=== PATIENT | male | born 1985 | race Caucasian/White ===

== ENCOUNTER 2024-02-27 07:59 | Emergency (ER) | payer MEDICAID ==
[~2024-02-27] VITALS: Ht 182.9 cm; Wt 113.4 kg
[2024-02-27 08:04] VITALS: BP 118/64; PULSE 74; RESP 20; TEMP 97.8; O2SAT 98
[2024-02-27] MEDS: LIDOCAINE MPF 1% 10 MG/ML VIAL INJ ONE (09:30)
[2024-02-27 09:53] LABS: AMPHETAMINE, URINE POSITIVE ng/ml (NEG <=1000); BARBITURATE, URINE NEGATIVE ng/ml (NEG <=200); BENZODIAZEPINE, URINE NEGATIVE ng/mL (NEG <=200); CANNABINOID, URINE NEGATIVE ng/mL (NEG <=50); COCAINE, URINE POSITIVE ng/mL (NEG <=300); OPIATE, URINE NEGATIVE ng/mL (NEG <=2000); PHENCYCLIDINE SCREEN,URINE NEGATIVE ng/mL (NEG <=25)
[2024-02-27 10:33] LABS: BASOPHILS % (AUTO) 0.2 % (0.0-2.0); EOSINOPHILS % (AUTO) 0.4 % (0.0-4.0); HEMATOCRIT 40.6 % (36-52); HEMOGLOBIN 14.4 g/dL (12.0-18.0); LYMPHOCYTES # (AUTO) 1.6 K/uL (2.0-11.5); LYMPHOCYTES % (AUTO) 18.4 % (20.5-51.1); MEAN CORPUSCULAR HEMOGLOBIN 32 pg (27-31); MEAN CORPUSCULAR HGB CONC 35 g/dL (33-37); MONOCYTES # (AUTO) 0.7 K/uL (0.8-1.0); NEUTROPHILS # (AUTO) 6.5 K/uL (1.8-7.7); PLATELET COUNT (AUTO) 266 K/uL (140-450); RED BLOOD CELL COUNT(AUTO) 4.51 MIL/uL (4.20-6.10); RED CELL DISTRIBUTION WIDTH 13.4 % (11.6-13.7); WHITE BLOOD COUNT (AUTO) 8.9 K/uL (4.8-10.8)
[2024-02-27 10:43] LABS: ANION GAP 8.9 (8-16); CALCIUM 9.1 mg/dL (8.5-10.1); CARBON DIOXIDE 31.8 mmol/L (21-32); CREATININE 0.9 mg/dL (0.6-1.3); POTASSIUM 3.7 mmol/L (3.5-5.1)
[2024-02-27 16:48] VITALS: BP 118/76; PULSE 84; RESP 16; TEMP 98.2; O2SAT 98
[2024-02-27] MEDS ORDERED: BACITRACIN OINT 500 UNITS/GM PKT TP ONE (17:49)
== END 2024-02-27 19:00 ==
LOC: MED 07:59
DX: S61.512A Laceration without foreign body of left wrist, initial encounter (principal); S61.511A Laceration without foreign body of right wrist, initial encounter; Z79.899 Other long term (current) drug therapy; X78.1XXA Intentional self-harm by knife, initial encounter; Y93.89 Activity, other specified; Y92.89 Other specified places as the place of occurrence of the external cause; Y99.8 Other external cause status
CPT/HCPCS: 12002; 36415; 80048; 80305; 85025; 90471; 90715; 99285; G0482; J2001